=== PATIENT | male | born 1965 | race Caucasian/White ===

== ENCOUNTER 2019-08-19 20:50 | Emergency (ER) | payer OTHER ==
[2019-08-19] MEDS ORDERED: Lidocaine 1% with EPINEPHrine 1:100,000 50 ML MDV INFILT ONE (21:31)
[2019-08-19] MEDS ORDERED: Bacitracin Oint 1 GM U/D Packet TOP ONE (21:31)
--- NOTE | 2019-08-19 21:35 | EDM.PDOC ---
ED HPI GENERAL MEDICAL PROBLEM - General Chief Complaint: Laceration Stated Complaint: CUT ON LEFT KNEE Time Seen by Provider: 08/19/19 21:15 Source of Information: Reports: Patient History Limitations: Reports: No Limitations - History of Present Illness INITIAL COMMENTS - FREE TEXT/NARRATIVE: 53 yo male presents to the ER with laceration to left lower leg. He was cutting a box and slipped cutting his leg. bleeding is controlled. generally healthy last tetanus was 5 years ago Left Leg Pain Score (Numeric/FACES): 1 - Related Data Allergies Allergy/AdvReac Type Severity Reaction Status Date / Time No Known Allergies Allergy Verified 08/19/19 21:18 Home Meds: Home Meds NK [No Known Home Meds] 08/19/19 [History] Past Medical History HEENT History: Reports: Impaired Vision, Other (See Below) Other HEENT History: tinnitis Genitourinary History: Reports: Renal Calculus Musculoskeletal History: Reports: Fracture Hematologic History: Reports: Anemia, B12 Deficiency, Folic Acid - Infectious Disease History Infectious Disease History: Reports: Chicken Pox, MRSA Other Infectious Disease History: 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 - Past Surgical History HEENT Surgical History: Reports: Tonsillectomy GI Surgical History: Reports: Bariatric Procedure, Colonoscopy, Hernia Repair/ Other Social & Family History - Tobacco Use Smoking Status *Q: Never Smoker - Recreational Drug Use Recreational Drug Use: No ED ROS GENERAL - Review of Systems Review Of Systems: See Below Constitutional: Denies: Fever, Chills, Fatigue Respiratory: Denies: Shortness of Breath, Wheezing Cardiovascular: Denies: Chest Pain ED EXAM, SKIN/RASH Exam: See Below Exam Limited By: No Limitations General Appearance: Alert, WD/WN, No Apparent Distress Skin: Wound/Incision, Other (1.5 cm laceration to lower left anterior leg just below knee) ED SKIN PROCEDURES - Laceration/Wound Repair Left Lower Anterior Medial Leg Appearance: Superficial, Subcutaneous Distal NVT: Neuro & Vascular Intact Anesthetic Type: Local Local Anesthesia - Lidocaine (Xylocaine): 1% with EPI Local Anesthetic Volume: 2cc Skin Prep: Chlorhexidine (Hibiciens), Saline, Sterile Drape Exploration/Debridement/Repair: Wound Explored, In a Bloodless Field, Explored to Base, Minimal Debridement Closed with: Sutures Lac/Wound length In cm: 2 Suture Size: 4-0 # of Sutures: 3 Suture Type: Nylon, Interrupted Course - Vital Signs Last Recorded V/S: Last Vital Signs Temp 36.4 C 08/19/19 21:26 Pulse 73 08/19/19 21:26 Resp 18 08/19/19 21:26 BP 126/72 08/19/19 21:26 Pulse Ox 95 08/19/19 21:26 - Orders/Labs/Meds Meds: Medications Discontinued Medications Generic Name Dose Route Start Last Admin Trade Name Mayo PRN Reason Stop Dose Admin Bacitracin 1 dose 08/19/19 21:31 08/19/19 21:41 Bacitracin Oint 1 Gm TOP 08/19/19 21:32 1 dose ONETIME ONE Administration Lidocaine/Epinephrine 3 ml 08/19/19 21:31 08/19/19 21:41 Xylocaine 1% With Epinephrine 1:100,000 INFILT 08/19/19 21:32 3 ml ONETIME ONE Administration Departure - Departure Time of Disposition: 21:52 Disposition: Home, Self-Care 01 Condition: Good Clinical Impression: Leg laceration Qualifiers: Encounter type: initial encounter Laterality: left Qualified Code(s): S81.812A - Laceration without foreign body, left lower leg, initial encounter - Discharge Information *PRESCRIPTION DRUG MONITORING PROGRAM REVIEWED*: Not Applicable *COPY OF PRESCRIPTION DRUG MONITORING REPORT IN PATIENT JENNIFER: Not Applicable Instructions: Sutures, [place], or Adhesive Wound Closure, [id number] Referrals: PCP,None [Primary Care Provider] - Forms: ED Department Discharge Additional Instructions: keep dry tonight may shower tomorrow, don't soak wound no swimming until sutures are out sutures out in 7 days observe for signs of infection: fire engine red, increase in pain, purulent drainage Sepsis Event Note - Evaluation Sepsis Screening Result: No Definite Risk - Focused Exam Vital Signs: Vital Signs Temp Pulse Resp BP Pulse Ox 08/19/19 21:26 36.4 C 73 18 126/72 95 08/19/19 21:25 36.4 C 73 18 126/72 95 Date Exam was Performed: 08/19/19 Time Exam was Performed: 21:50
== END 2019-08-19 22:00 | disposition home or self-care (01) ==
LOC: JP.ED 20:50
DX: S81.812A Laceration without foreign body, left lower leg, initial encounter (principal); W26.8XXA Contact with other sharp object(s), not elsewhere classified, initial encounter
CPT/HCPCS: 12001; 99282-25